=== PATIENT | male | born 1960 | race Two or more races ===

== ENCOUNTER 2020-07-02 07:50 | Day surgery (SDC) | payer OTHER | END 2020-07-02 13:45 | disposition home or self-care (01) | LOC: AMB-ENDOS 07:50 | PROVIDERS: ATTEND Colon & Rectal Surgery | DX: K62.1 Rectal polyp (principal); K64.8 Other hemorrhoids; K57.30 Diverticulosis of large intestine without perforation or abscess without bleeding; Z12.11 Encounter for screening for malignant neoplasm of colon; Z20.828 Contact with and (suspected) exposure to other viral communicable diseases ==